=== PATIENT | female | born 1935 | race African-American/Black ===

== ENCOUNTER 2025-01-01 08:56 | Outpatient (REF) | payer MEDICARE, SELFPAY ==
--- NOTE | ~2025-01-01 | XR_ITS ---
EXAMINATION: XR CHEST CLINICAL INFORMATION: R06.02 - Shortness of breath COMPARISON: None available. TECHNIQUE: 2 views of the chest were obtained. FINDINGS: There is no pneumothorax. Lungs are clear and well aerated. There is no pleural effusion. Heart size is within normal limits. There is rotator cuff arthropathy on the right with aeration of the subacromial space and irregularity of the humeral head contour. XR/XR chest 2V IMPRESSION: No acute disease. Rotator cuff arthropathy is present in the right shoulder consistent with a chronic full-thickness rotator cuff tear. Electronically signed by: Vern Qureshi MD 01/01/2025 10:49 AM VARSHA
[2025-01-01 11:15] LABS: MANUAL DIFF FLAG NO
[2025-01-01 11:53] LABS: Hematocrit 34.4 % (37.0-47.0); Hemoglobin 11.3 g/dl (12.0-16.0); Imm Gran Abs Auto 0.01 X10*3/uL (0.00-0.03); Imm Gran Pct Auto 0.2 % (0.0-0.4); Lymphocytes Absolute Auto 1.5 X10*3/uL (1.2-4.9); Mean Corpuscular HGB Conc 32.8 g/dl (31.0-35.0); Mean Corpuscular Hemoglobin 29.3 pg (27.0-33.0); Mean Corpuscular Volume 89.1 fL (80.0-98.0); NRBC Abs Auto 0.000 X10*3/uL (0.0-0.012); NRBC Pct Auto 0.0 /100WBC (0.0-0.2); Platelet Count 367 X10*3/uL (160-400); Red Blood Count 3.86 X10*6/uL (4.20-5.50); White Blood Count 4.9 X10*3/uL (4.8-10.8)
[2025-01-01 12:42] LABS: NT Pro B Type Natriuretic Pept 421.2 pg/mL (<300); Troponin-I High Sensitivity < 2.7 ng/L (<3.5-17.0)
[2025-01-01 12:46] LABS: Microalbum/Creatinine Ratio Ur 40.6 ug/mg cr (<30)
[2025-01-01 12:58] LABS: Alanine Aminotransferase 13 U/L (0-31); Albumin Level 4.2 g/dL (3.5-5.0); Alkaline Phosphatase 56 U/L (39-117); Anion Gap 10 (12-20); Aspartate Amino Transferase 28 U/L (5-31); Blood Urea Nitrogen 12 mg/dL (9-16); Calcium 9.9 mg/dL (8.4-10.2); Carbon Dioxide 32 mmol/L (22-29); Chloride 103 mmol/L (96-108); Cholesterol 203 mg/dL (<200); Estimated Glomerular Filt Rate > 60; HDL Cholesterol 83 mg/dL (>40); Iron 63 mcg/dL (30-160); Percent Iron Saturation 32 % (15-50); Potassium 4.0 mmol/L (3.3-5.1); Sodium 141 mmol/L (135-145); Total Iron Binding Capacity 197 mcg/dL (228-428); Total Protein 7.5 g/dL (6.5-8.0); Triglycerides 38 mg/dL (<150); Unsaturated Iron Binding 134 ug/dL
[2025-01-01 13:13] LABS: Ferritin 194 ng/mL (10-250)
== END 2025-01-01 08:57 | disposition home or self-care (01) ==
LOC: HO.XRAY 08:56
PROVIDERS: PCP Internal Medicine; Visit Provider Internal Medicine
DX: R00.2 Palpitations (principal); R06.02 Shortness of breath; K21.9 Gastro-esophageal reflux disease without esophagitis; I10 Essential (primary) hypertension; K58.9 Irritable bowel syndrome, unspecified; D50.9 Iron deficiency anemia, unspecified; Z78.0 Asymptomatic menopausal state; R07.9 Chest pain, unspecified
CPT/HCPCS: 36415; 71046; 80053; 80061; 82043; 82570; 82728; 83540; 83880; 84443; 84484; 85025; 99212

== ENCOUNTER 2025-01-01 08:56 | Outpatient (AMB) | payer MEDICARE, SELFPAY ==
--- NOTE | 2025-01-01 09:00 | A.OFFPC_ITS ---
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 Required: No Accompanied by: Self / Same As Patient Allergies amoxicillin Allergy (Intermediate, Verified 01/01/25 09:04) Diarrhea Medication List - Last Reconciled 01/01/25 by Jocy Covarrubias MD amlodipine 10 mg PO DAILY atenolol 50 mg PO DAILY sennosides-docusate sodium 8.6-50 mg (Stool Softener-Stimulant Laxative) 1 tab PO BID PRN Tobacco use date assessed: 01/01/25 Fall risk assessment: No Falls in past year Last assessed Fall Risk: 01/01/25 Dental Screening Dental Screen Date: 01/01/25 Did you have a dental visit in the last 12 months?: No Did you have a dental problem in the last 6 months where you did not have access to dental care?: No HPI HPI Comments History of Present Illness Details The patient is an 89-year-old female presenting to [facility] and for follow-up after recent emergency room visits related to diverticulitis and other health concerns. Diverticulitis: Confirmed diverticulitis with CT imaging at [facility]. Adverse reaction to Amoxicillin with diarrhea did not call ER when she had reaction. Managed with Metronidazole that she had at home. Total duration of both antibiotics about 7 days per patient. Shortness of Breath on Exertion: Symptomatic for a few months, worsens with activity. Also notes occasional chest tightness and palpiations. Had EKG done at [facility] on 12/24. Visual Disturbances: Previously treated for pink eye, ongoing impaired vision. Will be seeing new commercial appraiser IBS- stable HTN-stable Anemia- due for repeat labs GERD-stable, does not use PPI Social History: - Functions independently - Engages in yard work and home maintena nce - Reports decreased activity due to symp toms Family History: - Sister with stomach cancer - Sister with unspecified cancer noted o n the face Diagnostic Results: - CT scan completed [facility] for diverticulitis Health Maintenance due for bone density- will be getting at [facility] Used to see CT GI Review of Systems - Gastrointestinal: per hpi, occasional rlq pain - Respiratory: Reports shortness of sonny th on exertion. - Cardiovascular: Reports palpitations w ith exertion. - Ophthalmologic: Reports unresolved vis ual disturbances after a pink eye diagnosis. Physical Exam - Gen: NAD - Respiratory- Clear breath sounds, regu lar rate. - Cardiovascular- Regular rhythm, soft m urmur across precordium - Abdominal- Soft, normal bowel sounds, mild tenderness right lower quadrant. - Extremities: no edema bilaterally Assessment and Plan 1. Diverticulitis - Review [facility] records. - Monitor and consider repeat CT if symp toms persist. 2. Shortness of Breath on Exertion - Refer for a stress test and echocardio gram due to persistent symptoms and risk factors including HTN, age - Chest x-ray and labs ordered. - Obtain [facility] ER notes 3. Visual Disturbances - Suggest follow-up with commercial appraiser . 4. HTN- continue current regimen 5. Palpitations- continue to monitor, ch inocente tsh Follow up in 6 weeks. Discussion Notes During the visit, I discussed the patient's acute episodes of diverticulitis. I explained our plan to obtain records from [facility] and potentially repeat CT imaging if symptoms persisted. For her reported shortness of breath and palpitations, I recommended a cardiology workup including an echocardiogram and stress test, detailing why these steps are crucial to ruling out cardiac involvement. We also discussed scheduling a chest x-ray and relevant labs to identify any lung or heart-related issues underlying her symptoms. I also addressed her complaints regarding unresolved visual issues post-pink eye, recommending her to see an commercial appraiser. Patient Instructions - Monitor abdominal symptoms; report any worsening. - Follow up with commercial appraiser for vis ion issues. - Undergo scheduled stress test and echo cardiogram. - Complete chest x-ray and lab work as o rdered. - Avoid strenuous activities until furth er evaluation. [facility] Medical History (Updated 01/01/25 @ 14:44 by Jocy Covarrubias MD) Diverticulitis Palpitations Shortness of breath on exertion Post-menopausal Irritable bowel syndrome Iron deficiency anemia GERD (gastroesophageal reflux disease) Primary hypertension Social History Housing: House Patient Tobacco Use Status: Never used Tobacco e-Cigarette/Vaping Use: Never Used service: No Current occupational status: retired Questionnaire AUDIT C Alcohol Use Questionnaire (AUDIT-C) 1. How often do you have a drink containing alcohol?: Monthly or less 2. How many drinks containing alcohol do you have on a typical day when you are drinking?: 1 or 2 3. How often do you have six or more drinks on one occasion?: Never Total Score: 1 Physical exam (Primary Care) Vital Signs: Last Vital Signs Temp 96.8 F 01/01/25 09:03 Pulse 58 01/01/25 09:03 Resp 16 01/01/25 09:03 BP 120/76 01/01/25 09:03 Pulse Ox 97 01/01/25 09:03 Oxygen Delivery Method Room Air 01/01/25 09:03 BMI result Body Mass Index 21.5 Tobacco/Smoking Status: Tobacco use Status Tobacco use date assessed 01/01/25 01/01/25 09:08 Patient Tobacco Use Status Never used Tobacco 01/01/25 09:08 e-Cigarette/Vaping Use Never Used 01/01/25 09:08 Coding Level of Care Code Est Pt Level 4 (17837) Complex EM visit Add On G2211 Diagnoses Shortness of breath on exertion R06.02 Primary hypertension I10 Diverticulitis K57.92 Iron deficiency anemia, unspecified iron deficiency anemia type D50.9 Iron deficiency anemia type: unspecified iron deficiency Irritable bowel syndrome, unspecified type K58.9 Irritable bowel syndrome type: unspecified Palpitations R00.2 Assessment & Plan Assessment & Plan (1) Shortness of breath on exertion: Code(s): R06.02 - Shortness of breath Category: Medical (2) Primary hypertension: Code(s): I10 - Essential (primary) hypertension Category: Medical (3) Diverticulitis: Code(s): K57.92 - Diverticulitis of intestine, part unspecified, without perforation or abscess without bleeding Category: Medical Plan: see above, continue to monitor, pt declines GI follow up (4) Iron deficiency anemia: Code(s): D50.9 - Iron deficiency anemia, unspecified Category: Medical Qualifiers: Iron deficiency anemia type: unspecified iron deficiency Qualified Code(s): D50.9 - Iron deficiency anemia, unspecified (5) Irritable bowel syndrome: Code(s): K58.9 - Irritable bowel syndrome, unspecified Category: Medical Qualifiers: Irritable bowel syndrome type: unspecified Qualified Code(s): K58.9 - Irritable bowel syndrome without diarrhea (6) Palpitations: Code(s): R00.2 - Palpitations Category: Medical Plan: continue to monitor , no recurrent episodes Plan - Review [facility] records. - Refer for stress test, echo; order labs and chest x-ray. - Suggest ophthalmology follow-up. - Follow up in 6 weeks or sooner if needed Orders: Orders Comprehensive Met. Panel Today D50.9 - Iron deficiency anemia, unspecified, I10 - Essential (primary) hypertension, K21.9 - Gastro-esophageal reflux disease without esophagitis, K58.9 - Irritable bowel syndrome, unspecified Complete Blood Count Auto Diff Today D50.9 - Iron deficiency anemia, unspecified, I10 - Essential (primary) hypertension, K21.9 - Gastro-esophageal reflux disease without esophagitis, K58.9 - Irritable bowel syndrome, unspecified Microalbumin, Random (w Creat) Today I10 - Essential (primary) hypertension XR DEXA axial skeleton Today Z78.0 - Asymptomatic menopausal state NM cardiolite stress test Today R06.02 - Shortness of breath TSH reflex Free T4 Today R00.2 - Palpitations, R06.02 - Shortness of breath Lipid Panel Today D50.9 - Iron deficiency anemia, unspecified, I10 - Essential (primary) hypertension, K21.9 - Gastro-esophageal reflux disease without esophagitis, K58.9 - Irritable bowel syndrome, unspecified IRON PROFILE Today D50.9 - Iron deficiency anemia, unspecified, I10 - Essential (primary) hypertension, K21.9 - Gastro-esophageal reflux disease without esophagitis, K58.9 - Irritable bowel syndrome, unspecified Ferritin Today D50.9 - Iron deficiency anemia, unspecified, I10 - Essential (primary) hypertension, K21.9 - Gastro-esophageal reflux disease without esophagitis, K58.9 - Irritable bowel syndrome, unspecified CA stress test Today R06.02 - Shortness of breath, R07.9 - Chest pain, unspecified NT Pro B Type Natriuretic Pept Today R06.02 - Shortness of breath Troponin-I High Sensitivity Today R06.02 - Shortness of breath XR chest 2V Today R06.02 - Shortness of breath CA echo transthoracic complete Today R06.02 - Shortness of breath Patient Instructions: GET CHEST XRAY TODAY GET LABS TODAY WE WILL DO REFERRAL FOR STRESS TEST AND ECHOCARDIOGRAM TO EVALUATE YOUR SHORTNESS OF BREATH GET BONE DENSITY AT [facility]
[2025-01-01 09:03] VITALS: BP 120/76; PULSE 58; RESP 16; TEMP 36; O2SAT 97; BMI 21.5
--- OUTSIDE RECORDS SUMMARY | 2025-01-01 09:38 | XMS_ITS | Patient Health Record ---
Author Organization [facility] Address [address] [place] [address] Care Team Providers Care T[employer] Finisher Name Role Phone Johnnie Puentes MD Primary Care Provider Terrie Armstrong Unavailable [phone] Reason For Referral No Information Medications Medication SIG (Take, Route, Frequency, Duration) Notes Start Date End Date Status Atenolol 50 MG 1 tablet Orally Once a day; Duration: 30 day(s) Active hydroCHLOROthiazide 25 MG 1 tablet Orall y Once a day; Duration: 30 day(s) Active Problems No Known Problems Plan Of Treatment Pending Test Test Name Order Date X ray : Foot, left 3V 08/01/2012 26390- Debride <25 sq cm 08/01/2012 46336- Debride <25 sq cm 11/07/2012 53208- Debride <25 sq cm 03/23/2013 Insurance Providers Payer Name Payer Address Payer Phone Subscriber Number Group Number Insured Name Patient Relationship to Insured Coverage Start Date Coverage End Date [employer] [address] [place] [address] [id number] Enma Roman Self - patient is the insured 3 Medical (General) History Medical History History ICD Code angina Arthritis diverticulosis hypertension reflux Surgical History Surgery Date(Month/Year) hysterectomy 1996
--- OUTSIDE RECORDS SUMMARY | 2025-01-01 09:38 | XMS_ITS | Clinical Summary ---
Author Organization [facility] Address [address] [place] [address] Phone Care Team Providers Care Property Supervisor Name Role Phone Jocy Covarrubias MD Primary Care Provider [phone] Allergies No known active allergies Medications amoxicillin-cl avulanate (AUGMENTIN) 400-57 mg/5 mL suspension Take 10 mL by mouth every 12 (twelve) hours for 14 days. 280 mL 5 025 Active erythromycin 5 mg/gram (0.5 %) ophthalmic ointment Place a 1/2 inch ribbon of ointment into the lower eyelid. 3.5 g 5 025 amoxicillin-cl avulanate (AUGMENTIN) 400-57 mg/5 mL suspension Take 10 mL by mouth every 12 (twelve) hours for 14 days. 280 mL 5 025 Discontinued Encounters Date Type Department Care Team Description 12/24/2024 6:39 PM EDT - 12/24/2024 11:32 PM EDT Emergency [facility] Emergency [address] [place] [address] Quentin Dooley MD Landry, Jonathan P, MD Diverticulitis large intestine w/o perforation or abscess w/o bleeding (Primary Dx) Discharge Disposition: Home or Self Care 12/18/2024 6:55 PM EDT - 12/18/2024 9:48 PM EDT Emergency [facility] Emergency [address] [place] [address] Ruchi Vazquez MD Binocular vision disorder with diplopia (Primary Dx); Left-sided fourth cranial nerve palsy Discharge Disposition: Home or Self Care from Last 3 Months Surgical History Surgery Date Site/Laterality Comments HYSTERECTOMY Social History Tobacco Use Types Packs/Day Years Used Date Smoking Tobacco: Never Smokeless Tobacco: Current Tobacco Cessation:Ready to Q uit: Not Asked; Counseling Given: Not Answered Alcohol Use Standard Drinks/Week Comments Never 0 (1 standard drink = 0.6 oz pur e alcohol) Comments Unknown Sex and Gender Information Value Date Recorded Sex Assigned at Not on file Legal Sex Female 9:58 PM EST Gender Identity Not on file Sexual Orientation Not on file Obstetrics History Last Filed Vital Signs Vital Sign Reading Time Taken Comments Blood Pressure 169/61 12/24/2024 10:32 PM EDT Pulse 102 12/24/2024 10:32 PM EDT Temperature 38.3 C (100.9 F) 12/24/2024 10:32 PM EDT Respiratory Rate 22 12/24/2024 10:32 PM EDT Oxygen Saturation 97% 12/24/2024 10:32 PM EDT Inhaled Oxygen Concentration - - Weight 51.3 kg (113 lb) 12/24/2024 5:57 PM EDT Height 152.4 cm (5') 12/24/2024 5:57 PM EDT Body Mass Index 22.07 12/24/2024 5:57 PM EDT Plan of Treatment Health Maintenance Due Date Last Done Comments Hepatitis A Vaccines (1 of 2 - Risk 2-dose series) 1956 Zoster Vaccines (1 of 2) 1987 Hepatitis B Vaccines (1 of 3 - Risk 3-dose series) 1997 RSV Immunization Adult Patients (1 - 1-dose 75+ series) 2012 Cholesterol Screening (Lipid Panel) 04/04/2023 Falls Risk Assessment 04/04/2023 Medicare Annual Wellness Visit 04/04/2023 Osteoporosis Screening (Bone Density Screening) 04/04/2023 Social Influencers of Health Screening 04/04/2023 Depression Screening 03/01/2024 COVID-19 Vaccine ( season) 2024 12/29/2021, 06/14/2021, 01/28/2021, Additional history exists Influenza Vaccine (#1) 2024 Hypertension/CHF/CAD Annual BMP Blood Test 12/24/2025 12/24/2024, 12/18/2024, 01/02/2022 DTaP,Tdap,and Td Vaccines (2 - Td or Tdap) 02/20/2026 02/21/2016 Pneumococcal Vaccine: 50+ Years Completed 11/22/2017, 02/15/2017, 11/27/2003 HIB Vaccines Aged Out No longer eligi ble based on patient's age to complete this topic HPV Vaccines Aged Out No longer eligi ble based on patient's age to complete this topic IPV Vaccines Aged Out No longer eligi ble based on patient's age to complete this topic MMR Vaccines Aged Out No longer eligi ble based on patient's age to complete this topic Meningococcal ACWY Vaccine Aged Out N o longer eligible based on patient's age to complete this topic Meningococcal B Vaccine Aged Out No l onger eligible based on patient's age to complete this topic RSV Immunization Patients Under 20 months Aged Out No longer eligible based on patient's age to complete this topic Varicella Vaccines Aged Out No longer eligible based on patient's age to complete this topic Procedures Procedure Name Priority Date/Time Associated Diagnosis Comments ECG ANNOTATED 12/25/2024 CULTURE BLOOD STAT 12/24/2024 10:50 PM EDT CULTURE BLOOD STAT 12/24/2024 10:[address] ABDOMEN PELVIS W CONTRAST STAT 12/24/2024 9:00 PM EDT MAGNESIUM STAT 12/24/2024 7:33 PM EDT LACTATE STAT 12/24/2024 7:33 PM EDT CBC WITH AUTO DIFFERENTIAL STAT 12/24/2024 7:33 PM EDT LIPASE STAT 12/24/2024 7:33 PM EDT COMPREHENSIVE METABOLIC PANEL STAT 12/24/2024 7:33 PM EDT CBC AND DIFFERENTIAL STAT 12/24/2024 7:33 PM EDT ECG 12-LEAD STAT 12/24/2024 7:16 PM EDT REECE URINE CULTURE TUBE STAT 12/24/2024 6:07 PM EDT URINALYSIS WITH REFLEX MICROSCOPIC AND CULTURE STAT 12/24/2024 6:07 PM EDT URINALYSIS WITH REFLEX MICROSCOPIC AND CULTURE STAT 12/24/2024 6:[address] FOSSA/SELLA/IAC/ORBIT W CONTRAST STAT 12/18/2024 8:[address] HEAD WO CONTRAST STAT 12/18/2024 8 :43 PM EDT CBC WITH AUTO DIFFERENTIAL STAT 12/18/2024 7:04 PM EDT BASIC METABOLIC PANEL STAT 12/18/2024 7:04 PM EDT CBC AND DIFFERENTIAL STAT 12/18/2024 7:04 PM EDT from Last 3 Months Results * ECG-Annotated (12/25/2024) us Provider Onbase ECG ORDERABLES Final Result * Blood Culture, Peripheral #2 (12/24/2024 10:50 PM EDT) Only the most recent of2 resultswithin the time period is included. Culture, Blood No growth at 5 days LAB MICROBIOLOGY METHOD 12/30/2024 5:01 AM EDT [facility] Blood Venous blood specimen / Unknown Venipuncture / Unknown 12/24/2024 10:50 PM EDT 12/24/2024 11:16 PM EDT us Agustín Carlos MD LAB MICROBIOLOGY - GENERAL ORDERABLES Final Result [facility] [address] [place] [address], * CT Abdomen Pelvis w Contrast (12/24/2024 9:00 PM EDT) Anatomical Region Laterality Modality Body Computed Tomogra phy 12/24/2024 10:1 4 PM EDT Impressions 12/24/2024 10:14 PM EDT 1. Acute diverticulitis present at the hepatic flexure of the colon with extensive pericolonic edema in this region. No pericolonic abscess. No bowel obstruction. 2. Minimal free fluid present within the pelvis, possibly reactive in etiology. 3. Borderline bladder wall thickening. This is nonspecific, possibly related to bladder underdistention. If there is clinical concern for subtle cystitis, may consider correlation with urinalysis results for further evaluation. This document has been electronically signed by: Johnnie Butler MD on 12/24/2024 22:14:37 Narrative 12/24/2024 10:14 PM EDT INDICATION: abdominal pain CT abdomen and pelvis with contrast Comparison: None provided. Findings: No consolidation or effusion. The gallbladder and solid organs are within normal limits. No hydronephrosis or hydroureter. No bowel obstruction, pneumoperitoneum, or pneumatosis. There is colonic diverticulosis with bowel wall thickening and extensive pericolonic edema at the hepatic flexure of the colon, consistent with acute diverticulitis. No pericolonic abscess. The uterus is surgically absent. The bladder is underdistended, mildly limiting evaluation. There is borderline bladder wall thickening. Minimal free fluid identified within the pelvis. Nonvisualization of the appendix. No acute fracture visualized. There is grade 1 anterolisthesis of L4 on L5. Vacuum disc phenomenon present at L4-L5 and L5-S1. Procedure Note Johnnie Butler MD - 12/24/2024 INDICATION: abdominal pain CT abdomen and pelvis with contrast Comparison: None provided. Findings: No consolidation or effusion. The gallbladder and solid organs are within normal limits. No hydronephrosis or hydroureter. No bowel obstruction, pneumoperitoneum, or pneumatosis. There is colonic diverticulosis with bowel wall thickening and extensive pericolonicedema at the hepatic flexure of the colon, consistent with acutediverticulitis. No pericolonic abscess. The uterus is surgically absent. The bladder is underdistended, mildly limiting evaluation. There is borderline bladder wall thickening.Minimal free fluid identified within the pelvis. Nonvisualization of theappendix. No acute fracture visualized. There is grade 1 anterolisthesis of L4 on L5. Vacuum disc phenomenon present at L4-L5 and L5-S1. IMPRESSION: 1. Acute diverticulitis present at the hepatic flexure of the colon with extensive pericolonic edema in this region. No pericolonic abscess. No bowel obstruction. 2. Minimal free fluid present within the pelvis, possibly reactive in etiology. 3. Borderline bladder wall thickening. This is nonspecific, possibly related to bladder underdistention. If there is clinical concern for subtle cystitis, may consider correlation with urinalysis results for further evaluation. This document has been electronically signed by: Johnnie Butler MD on 12/24/2024 22:14:37 Quentin Dooley MD IM CT PROCEDURES Final Result * (ABNORMAL) CBC auto differential (12/24/2024 7:33 PM EDT) Only the most recent of2 resultswithin the time period is included. WBC 10.6 4.8 - 10.8 K/mcL LAB HEMETOLOGY METHOD 12/24/2024 7:57 PM [facility] RBC 3.80 3.80 - 4.80 M/mcL LAB HEMETOLOGY METHOD 12/24/2024 7:57 PM [facility] Hemoglobin 11.2(L) 11.5 - 16.0 g/dL LAB HEMETOLOGY METHOD 12/24/2024 7:57 PM [facility] Hematocrit 33.5(L) 35.0 - 47.0 % LAB HEMETOLOGY METHOD 12/24/2024 7:57 PM [facility] MCV 87.7 79.0 - 98.0 FL LAB HEMETOLOGY METHOD 12/24/2024 7:57 PM [facility] MCH 29.3 27.0 - 32.0 pcg LAB HEMETOLOGY METHOD 12/24/2024 7:57 PM EDT [facility] MCHC 33.4 32.0 - 37.0 g/dL LAB HEMETOLOGY METHOD 12/24/2024 7:57 PM EDT [facility] RDW 14.9 11.0 - 15.0 % LAB HEMETOLOGY METHOD 12/24/2024 7:57 PM EDT [facility] Platelets 315 130 - 400 K/mcL LAB HEMETOLOGY METHOD 12/24/2024 7:57 PM EDT [facility] MPV 10.8 7.0 - 11.0 FL LAB [facility]EMETOLOGY [facility] NRBC 0.0 <1.0 % LAB HEMETOLOGY METHOD 12/24/2024 7:57 PM EDT [facility] NRBC Absolute 0.00 <0.10 K/mcL LAB [facility]OLOGY [facility]/24[facility]24 [facility] Neutrophils Relative 76.7 % LAB HEMETOLOGY METHOD 12/24/2024 7:57 PM [facility] Lymphocytes Relative 11.5 % LAB HEMETOLOGY METHOD 12/24/2024 7:57 PM [facility] Monocytes Relative 10.9 % LAB HEMETOLOGY METHOD 12/24/2024 7:57 PM T [facility] Eosinophils Relative 0.3 % LAB HEMETOLOGY METHOD 12/24/2024 7:57 PM EDT [facility] Basophils Relative 0.2 % LAB HEMETOLOGY METHOD 12/24/2024 7:57 PM [facility] Immature Granulocytes Relative 0.4 % LAB HEMETOLOGY METHOD 12/24/2024 7:57 PM EDT [facility] Neutrophils Absolute 8.14(H) 1.50 - 7.00 K/mcL LAB HEMETOLOGY METHOD 12/24/2024 7:57 PM EDT [facility] Lymphocytes Absolute 1.22 1.00 - 5.00 K/mcL LAB HEMETOLOGY METHOD 12/24/2024 7:57 PM EDT [facility] Monocytes Absolute 1.16(H) 0.20 - 1.00 K/mcL LAB HEMETOLOGY METHOD 12/24/2024 7:57 PM EDT [facility] Eosinophils Absolute 0.03 0.00 - 0.50 K/[facility] LAB HEMETOLOGY METHOD 12/24/2024 7:57 PM EDT [facility] Basophils Absolute 0.02 0.00 - 0.20 K/[facility] LAB HEMETOLOGY METHOD 12/24/2024 7:57 PM EDT [facility] Immature Granulocytes Absolute 0.04(H) 0.00 - 0.03 K/[facility] LAB HEMETOLOGY METHOD 12/24/2024 7:57 PM EDT [facility] Blood Venous blood specimen / Unknown Venipuncture / Unknown 12/24/2024 7:33 PM EDT 12/24/2024 7:50 PM EDT us Agustín Carlos MD LAB BLOOD ORDERABLES Final Result [facility] [address] [place] [address], * (ABNORMAL) Magnesium (12/24/2024 7:33 PM EDT) Magnesium 1.8(L) 1.9 - 2.6 mg/dL LAB CHEMISTRY METHOD 12/24/2024 8:26 PM EDT [facility] Comment:Hemolysis present Blood Venous blood specimen / Unknown Venipuncture / Unknown 12/24/2024 7:33 PM EDT 12/24/2024 7:50 PM EDT Quentin Dooley MD LAB BLOOD ORDERABLES Final Resul t Performing Organization Address [facility]/ZIP Co de Phone Number [facility] [address] [place] [address], [place] [phone] * Lipase (12/24/2024 7:33 PM EDT) Pathologist [facility] Lipase 20 13 - 75 unit/L LAB CHEMISTRY METHOD 12/24/2024 8:26 PM EDT [facility] Blood Venous blood specimen / Unknown Venipuncture / Unknown 12/24/2024 7:33 PM EDT 12/24/2024 7:50 PM EDT Agustín Carlos MD LAB BLOOD ORDERABLES Final Result Performing Organization Address [facility] Co de Phone Number [facility] [address] [place] [address], [place] [phone] * Lactate (12/24/2024 7:33 PM EDT) [facility] Lactate 1.1 0.4 - 2.0 mmol/L LAB CHEMISTRY METHOD 12/24/2024 8:18 PM EDT [facility] Blood Venous blood specimen / Unknown Venipuncture / Unknown 12/24/2024 7:33 PM EDT 12/24/2024 7:50 PM EDT us Quentin Dooley MD LAB BLOOD ORDERABLES Final Resul t Performing Organization Address [facility]/ZIP Co de Phone Number [facility] [address] [place] [address], [place] [phone] * (ABNORMAL) Comprehensive metabolic panel (12/24/2024 7:33 PM EDT) Pathologist [facility] Sodium 135 133 - 145 mmol/L LAB CHEMISTRY METHOD 12/24/2024 8:26 PM EDT [facility] Potassium 4.7 3.5 - 5.5 mmol/L LAB CHEMISTRY METHOD 12/24/2024 8:26 PM [facility] Comment:Hemolysis present Chloride 100 96 - 110 mmol/L LAB CHEMISTRY METHOD 12/24/2024 8:26 PM [facility] CO2 30 21 - 32 mmol/L LAB CHEMISTRY METHOD 12/24/2024 8:26 PM [facility] Anion Gap 5 3 - 11 LAB CHEMISTRY METHOD 12/24/2024 8:26 PM [facility] Glucose 93 70 - 100 mg/dL LAB CHEMISTRY METHOD 12/24/2024 8:26 PM [facility] BUN 11 5 - 25 mg/dL LAB CHEMISTRY METHOD 12/24/2024 8:26 PM [facility] Creatinine 0.96 0.50 - 1.10 mg/dL LAB CHEMISTRY METHOD 12/24/2024 8:26 PM [facility] eGFR 57(L) >=60 mL/min/1. 73m2 LAB CHEMISTRY METHOD 12/24/2024 8:26 PM [facility] Comment:Calculation based on the Chronic Kidney Disease Epidemiology Collaboration (CKD-EPI) equation refit without adjustment for race. BUN/Creatinine Ratio 11.5 LAB CHEMISTRY METHOD 12/24/2024 8:26 PM [facility] Calcium 9.1 8.5 - 10.5 mg/dL LAB CHEMISTRY METHOD 12/24/2024 8:26 PM [facility] AST (SGOT) 44(H) 10 - 42 unit/L LAB CHEMISTRY METHOD 12/24/2024 8:26 PM [facility] Comment:Hemolysis present ALT (SGPT) 19 10 - 60 unit/L LAB CHEMISTRY METHOD 12/24/2024 8:26 PM [facility] Alkaline Phosphatase 55 42 - 121 unit/L LAB CHEMISTRY METHOD 12/24/2024 8:26 PM EDT [facility] Total Protein 7.0 6.0 - 8.0 g/dL LAB CHEMISTRY METHOD 12/24/2024 8:26 PM EDT [facility] Albumin 3.1(L) 3.2 - 5.0 g/dL LAB CHEMISTRY METHOD 12/24/2024 8:26 PM EDT [facility] Total Bilirubin 0.8 0.0 - 1.4 mg/dL LAB CHEMISTRY METHOD 12/24/2024 8:26 PM EDT [facility] Blood Venous blood specimen / Unknown Venipuncture / Unknown 12/24/2024 7:33 PM EDT 12/24/2024 7:50 PM EDT Agustín Carlos MD LAB BLOOD ORDERABLES Final Result [facility] [address] [place] [address], [place] [phone] * 12-Lead ECG (12/24/2024 7:16 PM EDT) Ventricular Rate ECG 81 BPM GEMUSE Atrial Rate 81 BPM GEMUSE P-R Interval 144 ms GEMUSE QRS Duration 60 ms GEMUSE Q-T Interval 334 ms GEMUSE QTc 387 ms GEMUSE P Wave [place] 54 degrees GEMUSE R [place] 10 degrees GEMUSE T [place] 28 degrees GEMUSE ECG Interpretation Normal sinus rhythm Normal ECG When compared with ECG of 03-SEP-2014 20:42, No significant change was found Confirmed by Sotero KAPOOR YUFENG ([id number]) on 12/24/2024 9:35:54 PM GEMUSE 12/24/2024 7:16 PM EDT 12/24/2024 9:35 PM EDT us Qunetin Dooley MD ECG ORDERABLES Final Result GEMUSE * (ABNORMAL) Urinalysis with reflex microscopic and culture (12/24/2024 6:07 PM EDT) Specific [place] Urine 1.014 1.003 - 1.030 LAB URINALYSIS - AUTOMATED METHOD 12/24/2024 6:39 PM [facility] pH, Urine 7.5 5.0 - 8.0 pH LAB URINALYSIS - AUTOMATED METHOD 12/24/2024 6:39 PM [facility] Leukocytes, Urine Negative Negative LAB URINALYSIS - AUTOMATED METHOD 12/24/2024 6:39 PM [facility] Nitrite, Urine Negative Negative LAB URINALYSIS - AUTOMATED METHOD 12/24/2024 6:39 PM [facility] Protein, Urine Negative <=Trace mg/dL LAB URINALYSIS - AUTOMATED METHOD 12/24/2024 6:39 PM [facility] Glucose, Urine Negative Negative mg/dL LAB URINALYSIS - AUTOMATED METHOD 12/24/2024 6:39 PM [facility] Ketones, Urine Negative Negative mg/dL LAB URINALYSIS - AUTOMATED METHOD 12/24/2024 6:39 PM [facility] Urobilinogen , Urine 0.2 0.2 - 1.0 mg/dL LAB URINALYSIS - AUTOMATED METHOD 12/24/2024 6:39 PM [facility] Bilirubin, Urine Negative Negative LAB URINALYSIS - AUTOMATED METHOD 12/24/2024 6:39 PM [facility] Blood, Urine Moderate(A) Negative LAB URINALYSIS - AUTOMATED METHOD 12/24/2024 6:39 PM [facility] RBC, Urine 34.2(H) 0 - 4 /HPF LAB URINALYSIS - AUTOMATED METHOD 12/24/2024 6:39 PM [facility] WBC, Urine 1.7 0 - 4 /HPF LAB URINALYSIS - AUTOMATED METHOD 12/24/2024 6:39 PM [facility] Squamous Epithelial, Urine 58 0 - 60 /LPF LAB URINALYSIS - AUTOMATED METHOD 12/24/2024 6:39 PM EDT [facility] Bacteria, Urine Negative Negative /HPF LAB URINALYSIS - AUTOMATED METHOD 12/24/2024 6:39 PM EDT [facility] Hyaline Casts, Urine 0.0 0 - 3 /LPF LAB URINALYSIS - AUTOMATED METHOD 12/24/2024 6:39 PM EDT [facility] Urine Urine specimen obtained by clean catch procedure / Unknown Non-blood Collection / Unknown 12/24/2024 6:07 PM EDT 12/24/2024 6:12 PM EDT Agustín Carlos MD LAB URINE ORDERABLES Final Result Performing Organization Address City/[facility]/ZIP Co de Phone Number [facility] [address] [place] [address], [place] [phone] * Reece urine culture tube (12/24/2024 6:07 PM EDT) Extra Tube Hold for add-ons. 12/24/2024 8:01 PM EDT [facility] Comment:Auto resulted. Urine Urine specimen obtained by clean catch procedure / Unknown Non-blood Collection / Unknown 12/24/2024 6:07 PM EDT 12/24/2024 6:12 PM EDT Agustín Carlos MD LAB URINE ORDERABLES Final Result [facility] [address] [place] [address], [place] [phone] * CT Fossa/Sella/IAC/Orbit w Contrast (12/18/2024 8:43 PM EDT) Anatomical Region Laterality Modality Head and Neck Computed Tomogra phy 12/18/2024 9:34 PM EDT Impressions 12/18/2024 9:34 PM EDT Right maxillary sinus disease. No periorbital abscess or abnormality of the globe bilaterally by CT. This document has been electronically signed by: Fco Granado MD on 12/18/2024 21:34:00 Narrative 12/18/2024 9:34 PM EDT INDICATION: r/o orbital cellulitis CT orbits with contrast Comparison: None provided Findings: No acute fractures. No dislocations. Orbital contents are normal. Visualized intracranial contents are within normal limits. There is circumferential thickening of the right maxillary sinus and mucoperiosteal thickening of the ethmoid air cells. No foreign bodies. Procedure Note Fco Granado MD - 12/18/2024 INDICATION: r/o orbital cellulitis CT orbits with contrast Comparison: None provided Findings: No acute fractures. No dislocations. Orbital contents are normal. Visualized intracranial contents are within normal limits. There is circumferential thickening of the right maxillary sinus and mucoperiosteal thickening of the ethmoid air cells. No foreign bodies. IMPRESSION: Right maxillary sinus disease. No periorbital abscess or abnormality of the globe bilaterally by CT. This document has been electronically signed by: Fco Granado MD on 12/18/2024 21:34:00 Ruchi Vazquez MD IMG CT PROCEDURES Final Result * CT Head wo Contrast (12/18/2024 8:43 PM EDT) Anatomical Region Laterality Modality Head and Neck Computed Tomogra phy 12/18/2024 9:33 PM EDT Impressions 12/18/2024 9:33 PM EDT Impression: No acute intracranial process. Chronic changes as detailed. This document has been electronically signed by: Fco Granado MD on 12/18/2024 21:33:06 Narrative 12/18/2024 9:33 PM EDT INDICATION: binocular diplopia CT head without contrast Comparison: None Findings: No evidence of acute territorial infarct. There is patchy low density in the periventricular and subcortical white matter. Diffuse volume loss is noted. No hydrocephalus. No hemorrhage, mass effect, mass lesion or midline shift. No abnormal extra-axial fluid. No calvarial fracture. Paranasal sinuses exhibit mucoperiosteal thickening. Procedure Note Fco Granado MD - 12/18/2024 INDICATION: binocular diplopia CT head without contrast Comparison: None Findings: No evidence of acute territorial infarct. There is patchy low density in the periventricular and subcortical white matter. Diffuse volume loss is noted. No hydrocephalus. No hemorrhage, mass effect, mass lesion or midline shift. No abnormal extra-axial fluid. No calvarial fracture. Paranasal sinuses exhibit mucoperiosteal thickening. IMPRESSION: Impression: No acute intracranial process. Chronic changes as detailed. This document has been electronically signed by: Fco Granado MD on 12/18/2024 21:33:06 Ruchi Vazquez MD IM CT PROCEDURES Final Result * (ABNORMAL) Basic Metabolic Panel (BMP) (12/18/2024 7:04 PM EDT) Sodium 137 133 - 145 mmol/L LAB CHEMISTRY METHOD 12/18/2024 7:51 PM [facility] Potassium 4.4 3.5 - 5.5 mmol/L LAB CHEMISTRY METHOD 12/18/2024 7:51 PM [facility] Chloride 102 96 - 110 mmol/L LAB CHEMISTRY METHOD 12/18/2024 7:51 PM [facility] CO2 30 21 - 32 mmol/L LAB CHEMISTRY METHOD 12/18/2024 7:51 PM [facility] Anion Gap 5 3 - 11 LAB CHEMISTRY METHOD 12/18/2024 7:51 PM [facility] Glucose 101(H) 70 - 100 mg/dL LAB CHEMISTRY METHOD 12/18/2024 7:51 PM [facility] BUN 13 5 - 25 mg/dL LAB CHEMISTRY METHOD 12/18/2024 7:51 PM [facility] Creatinine 0.89 0.50 - 1.10 mg/dL LAB CHEMISTRY METHOD 12/18/2024 7:51 PM EDT [facility] eGFR 63 >=60 mL/min/1. 73m2 LAB CHEMISTRY METHOD 12/18/2024 7:51 PM EDT [facility] Comment:Calculation based on the Chronic Kidney Disease Epidemiology Collaboration (CKD-EPI) equation refit without adjustment for race. BUN/Creatinine Ratio 14.6 LAB CHEMISTRY METHOD 12/18/2024 7:51 PM EDT [facility] Calcium 9.9 8.5 - 10.5 mg/dL LAB CHEMISTRY METHOD 12/18/2024 7:51 PM EDT [facility] Blood Venous blood specimen / Unknown Venipuncture / Unknown 12/18/2024 7:04 PM EDT 12/18/2024 7:12 PM EDT us Ruchi Vazquez MD LAB BLOOD ORDERABLES Final Resul t [facility] [address] [place] [address], from Last 3 Months Insurance MEDICARE Care Teams Property Supervisor Relationship Specialty Start Date End Date Jocy [place]arrubias MD [id number] [place] [address] PCP - General Internal Medicine 12/18/24
--- OUTSIDE RECORDS SUMMARY | 2025-01-01 09:38 | XMS_ITS | Clinical Summary ---
Author Organization [facility] Address [address] [place] [address] Care Team Providers Care Rip/Mould Operator Name Role Phone Unavailable Primary Care Provider Unavailabl e Social History Tobacco Use Types Packs/Day Years Used Date Smoking Tobacco: Never Assessed Sex and Gender Information Value Date Recorded Sex Assigned at Not on file Gender Identity Not on file Sexual Orientation Not on file Job Start Date Occupation Industry Not on file Not on file Not on file Plan of Treatment Health Maintenance Due Date Last Done Comments COVID-19 Vaccine (#1) 1935 Depression Screening 1949 Preventative Health Evaluation 1955 Shingrix-Zoster Vaccine (1 o f 2) 1987 Fall Risk Assessment 2002 Osteoporosis Screening (DEXA Scan) 2002 RSV Adult > 60+ Yrs or (1 - 1-dose 75+ series) 2012 DTap / Tdap / Td (1 - Tdap) 02/22/2016 02/21/2016 Influenza Vaccine (#1) 2024 Pneumococcal Vaccine Completed 11/22/2017, 02/15/2017, 11/27/2003 Hepatitis B Vaccines Aged Out No long er eligible based on patient's age to complete this topic RSV Ped < 20 months Aged Out No longe r eligible based on patient's age to complete this topic
--- OUTSIDE RECORDS SUMMARY | 2025-01-01 09:38 | XMS_ITS | Clinical Summary ---
Author Organization [facility] Address [address] [place] [address] Care Team Providers Care Valet Runner Name Role Phone Jocy Covarrubias MD Primary Care Provider +1- [phone] Allergies No known active allergies Medications Cholecalciferol (VITAMIN D3 PO) Take 25 mcg by mouth. 01/10/2021 Active amLODIPine (NORVASC) 5 MG tablet Take 5 mg by mouth. 08/12/2021 Active atenolol (TENORMIN) 50 MG tablet Take 50 mg by mouth daily. 12/25/2021 Active hydrochlorothiaz mahnaz (HYDRODIURIL) 25 MG tablet Take 25 mg by mouth daily. Active PANTOprazole (PROTONIX) 40 MG EC tabletIndication s:Epigastric pain Take 1 tablet (40 mg total) by mouth daily. 90 tablet 3 12/18/2022 Active hyoscyamine (LEVSIN) 0.125 MG tabletIndication s:Abdominal pain, generalized Take 1 tablet (0.125 mg total) by mouth every 4 (four) hours as needed for cramping. 30 tablet 3 05/24/2023 Active Active Problems Problem Noted Date Diagnosed Date Constipation 12/20/2022 Diverticulosis 12/18/2022 Epigastric pain 12/18/2022 Abdominal pain, generalized 12/18/2022 Hypertension 01/02/2022 Periumbilical pain 01/02/2022 Assessment & Plan (01/02/2022 11:32 AM EDT): Despite feeling pain remit, still with tenderness on exam Check labs and CT Scan Diverticulitis 01/02/2022 Assessment & Plan (01/02/2022 11:31 AM EDT): Hx diverticulitis in the past CT scan as above Continue prune juice for constipation for now Plan pending work up Family History Relation Name Status Comments Father Mother Social History Tobacco Use Types Packs/Day Years Used Date Smoking Tobacco: Never Smokeless Tobacco: Never Alcohol Use Standard Drinks/Week Comments Not Currently 3 (1 standard drink = 0.6 oz pur e alcohol) sometimes Comments Unknown Sex and Gender Information Value Date Recorded Sex Assigned at Not on file Legal Sex Female 11:56 AM EDT Gender Identity Not on file Sexual Orientation Not on file Last Filed Vital Signs Vital Sign Reading Time Taken Comments Blood Pressure 110/68 05/24/2023 9:35 AM EDT Pulse 60 05/24/2023 9:35 AM EDT Temperature - - Respiratory Rate - - Oxygen Saturation - - Inhaled Oxygen Concentration - - Weight 52.2 kg (115 lb) 05/24/2023 9:35 AM EDT Height 152.4 cm (5') 05/24/2023 9:35 AM EDT Body Mass Index 22.46 05/24/2023 9:35 AM EDT Plan of Treatment Health Maintenance Due Date Last Done Comments Advance Care Planning 1935 DTaP/Tdap/Td Vaccines (1 - Tdap) 1956 Pneumococcal Vaccines 50+ (1 of 1 - PCV) 1987 Zoster (Shingles) Vaccine (1 of 2) 1987 DXA Bone Density (Females,Ages 65 and older) 2002 RSV Vaccine 50 years and older and Patients (1 - 1-dose 75+ series) 2012 Influenza Vaccine 09/29/2024 COVID-19 Vaccine (2024- season) 2024 06/14/2021, 01/28/2021, 07/11/2020, Additional history exists Hepatitis B Vaccines Aged Out No long er eligible based on patient's age to complete this topic Insurance MEDICARE PART A & B Care Teams Valet Runner Relationship Specialty Start Date End Date Jocy Covarrubias MD [address] [place] [address] PCP - General Internal Medicine 12/23/18
== END 2025-01-01 10:11 | disposition home or self-care (01) ==
LOC: HO.HMCHD 08:56
PROVIDERS: PCP Internal Medicine; Visit Provider Internal Medicine
DX: R06.02 Shortness of breath (principal); I10 Essential (primary) hypertension; K57.92 Diverticulitis of intestine, part unspecified, without perforation or abscess without bleeding; D50.9 Iron deficiency anemia, unspecified; K58.9 Irritable bowel syndrome, unspecified; R00.2 Palpitations

== ENCOUNTER → 2025-01-01 10:26 | Outpatient (BNV) | payer MEDICARE, SELFPAY | PROVIDERS: PCP Internal Medicine; Visit Provider Radiology Diagnostic Radiology | DX: R06.02 Shortness of breath (principal); M12.811 Other specific arthropathies, not elsewhere classified, right shoulder | CPT/HCPCS: 71046 ==

== ENCOUNTER → 2025-01-05 13:38 | Outpatient (REF) | payer MEDICARE, SELFPAY ==
--- NOTE | 2025-01-05 13:41 | CA_ITS ---
Transthoracic Echocardiogram Patient (Last, First, Middle): Enma Roman, Gender: F Date of : 1935 Age: 89 Procedure Date: 01/05/2025 Procedure Type: Transthoracic Echocardiogram Location: OP Height: 152.4 cm Weight: 50.8 kg BSA: 1.46 m2 Heart Rate: 54 bpm BP: 120 / 76 mmHg Geophysical Support Specialist: CORNELIA Referring MD: Jocy Covarrubias MD Machine Feeder Floorperson: Alf Harmon MD Symptoms: R06.02 - Shortness of breath Study Quality: Adequate ECG Rhythm: Bradycardia Conclusions: - 1. Hyperdynamic LV EF of greater than 70% with grade 1 diastolic dysfunction 2. Normal cardiac valvular Dopplers 3. Normal RV systolic pressure 4. No gross pericardial effusion Findings Left Ventricle Normal left ventricular cavity size. There is normal left ventricular wall thickness. The left ventricular systolic function is hyperdynamic. The visually estimated ejection fraction is >70%. Spectral Doppler is indicative of an impaired relaxation filling pattern. E/E prime ratio is <8, consistent with normal filling pressures. Evidence suggests grade I (mild) diastolic dysfunction. Right Ventricle Normal right ventricular cavity size and systolic function. Atria Both atria are normal in size. There is no evidence of interatrial shunt. Aortic Valve Normal aortic valve structure and function. There is no aortic valve stenosis. There is no aortic valve regurgitation. Mitral Valve Normal mitral valve structure and function. There is trace mitral valve regurgitation. There is no mitral valve stenosis. Pulmonic Valve The pulmonic valve is likely normal. There is trace pulmonic valve regurgitation. Tricuspid Valve Normal tricuspid valve structure. There is trace tricuspid valve regurgitation. The right ventricular systolic pressure is normal. The right ventricular systolic pressure is 29 mmHg. Normal right atrial pressure. There is no evidence of pulmonary hypertension. Great Vessels All visible segments of the aorta are normal in size. The pulmonary artery was not well visualized. There is no dilatation of the ascending aorta measuring 2.50 cm. Venous The inferior vena cava is normal in size and collapses greater than 50% with inspiration. Pericardium/Pleural There is no evidence of pericardial effusion. Prior Study Comparison No prior study available for comparison. Measurements 2D Linear Measurements IVSd: 0.84 0.6-0.9/0.6-1.0 cm LVIDd: 3.96 3.9-5.3/4.2-5.9 cm LVIDd Index: 2.71 2.4-3.2/2.2-3.1 cm/m2 LVIDs: 2.23 2.0-3.6 cm LVPWd: 0.83 0.7-1.1 cm LA Diam: 3.00 2.7-3.8/3.0-4.0 cm LAIDs Index: 2.05 1.5-2.3 cm/m2 LV Mass: 121.60 67-162/88-224 g LV Mass Index: 83.29 43-95/49-115 g/m2 LVOT Diam: 1.80 3.0+(-)1.3 cm 2D Systolic Function EF 4C: 73.50 >55% EF 2C: 82.60 >55% EF BiP: 78.00 >55% Mitral Valve MV Pk E: 0.66 MV PK A: 0.66 MV Decel Time: 256.00 E/A: 1.00 E'Lateral: 6.64 E'Medial: 6.42 E/E' Med: 10.20 E/E' Lat: 9.90 PHT: 75.00 MVA PHT: 2.93 Decel Piute: 2.56 Aortic Valve AoV Pk Dawit: 1.19 AoV Pk Grad: 6.00 YOLANDA: 2.32 LVOT LVOT Pk Dawit: 1.07 LVOT Mn Dawit: 0.72 LVOT VTI: 0.25 LVOT Pk Grad: 5.00 LVOT Mn Grad: 2.00 LVOT Diam: 1.80 LVOT Area: 2.54 Diastolic Function MV Pk E: 0.66 MV Pk A: 0.66 E/A: 1.00 E'Medial: 6.42 E/E' Med: 10.20 E' Laterial: 6.64 E/E' Lat: 9.90 Right Ventricle TAPSE (mm): 22.80 Tricuspid Valve TR Pk Dawit: 2.54 TR Pk Grad: 26.00 RA Press: 3.00 RVSP: 29.00 Great Vessels Aorta Sinus of Valsalva: 2.70 2.0-3.5 cm Ao Asc: 2.50 2.1-3.4 cm Pulmonary Veins Pulm Vein S/D 1.90 Pulmonary Valve PV Pk Dawit: 0.92 Peak PV Grad: 3.00 Updated in Other Vendor System with Status of Final Alf Harmon MD electronically signed on 01/05/2025 3:36:32 PM with status of Final
--- OUTSIDE RECORDS SUMMARY | 2025-01-05 15:43 | XMS_ITS | Clinical Summary ---
Author Organization [facility] Address [address] [place] [address] Care Team Providers Care Vice President Of Instruction Name Role Phone Jocy Covarrubias MD Primary Care Provider +1- [phone] Allergies No known active allergies Medications Cholecalciferol [...] MEDICARE PART A & B Care Teams Vice President Of Instruction Relationship Specialty Start Date End Date Jocy Covarrubias MD [address] [place] [address] PCP - General Internal Medicine 12/23/18
--- OUTSIDE RECORDS SUMMARY | 2025-01-05 15:43 | XMS_ITS | Clinical Summary ---
Author Organization [facility] Address [address] [place] [address] Care Team Providers Care Global Marketing Intern Name Role Phone Unavailable Primary Care Provider [...]
--- OUTSIDE RECORDS SUMMARY | 2025-01-05 15:43 | XMS_ITS ---
[facility] Name [facility] Unknown History of Medication Use Medication Directions Dispensed Refills Start Date End Date Stat us hyoscyamine (LEVSIN) 0.125 MG tablet Take 1 tablet (0.125 mg total) by mouth every 4 (four) hours as needed for cramping. 12/18/2022 active PANTOprazole (PROTONIX) 40 MG EC tablet Take 1 tablet (40 mg total) by mouth daily. 12/18/2022 active atenolol (TENORMIN) 50 MG tablet Take 50 mg by mouth daily. 12/25/2021 active amLODIPine (NORVASC) 5 MG tablet Take 5 mg by mouth. 08/12/2021 active Cholecalciferol (VITAMIN D3 PO) Take 25 mcg by mouth. 01/10/2021 active hydrochlorothiazide (HYDRODIURIL) 25 MG tablet Take 25 mg by mouth daily. active Problems Problem Status Onset Date Problem Type Date of Resoluti on Source Diverticulitis active 2022-01-02 ProblemAct [facility] Hypertension active 2022-01-02 ProblemAct [facility] Periumbilical pain active 2022-01-02 ProblemAct [facility] Abdominal pain, generalized active 2022-12-18 ProblemAct [facility] Diverticulosis active 2022-12-18 ProblemAct [facility] Constipation active 2022-12-20 ProblemAct [facility] Epigastric pain active 2022-12-18 ProblemAct [facility] Encounters Encounter Type Encounter Reason Primary Diagnosis Location Date Ambulatory Follow-up Follow-up Jiff 05/24/2023 Ambulatory Diverticulosis of intestine, part unspecified, without perforation or abscess without bleeding Diverticulosis of intestine, part unspecified, without perforation or abscess without bleeding [facility] 12/18/2022 Ambulatory Periumbilical pain [facility] 01/02/2022 Care Team Organization Name Specialty Phone Email Start Date End Da [facility] 11/18/202101/02
--- OUTSIDE RECORDS SUMMARY | 2025-01-05 15:43 | XMS_ITS | Clinical Summary ---
Author Organization [facility] Address [address] [place] [address] Phone Care Team Providers Care Brick Loader Name Role Phone Jocy Covarrubias MD Primary Care Provider +1- [phone] Allergies No known active allergies Medications amoxicillin-cl [...] EDT - 12/24/2024 11:32 PM EDT Emergency [facility] Emergency [address] [place] [address] Quentin Dooley MD Landry, Jonathan P, MD Diverticulitis large intestine w/o perforation or abscess w/o bleeding (Primary Dx) Discharge Disposition: Home or Self Care 12/18/2024 6:55 PM EDT - 12/18/2024 9:48 PM EDT Emergency [facility] Emergency [address] [place] [address] Ruchi Vazquez MD Binocular vision [...] LAB MICROBIOLOGY METHOD 12/30/2024 5:01 AM EDT [facility] Blood Venous blood specimen / Unknown Venipuncture / Unknown 12/24/2024 10:50 PM EDT 12/24/2024 11:16 PM EDT us Agustín Carlos MD LAB MICROBIOLOGY - GENERAL ORDERABLES Final Result [facility] [address] [place] [address], * CT Abdomen Pelvis w Contrast (12/24/2024 [...] K/mcL LAB HEMETOLOGY METHOD 12/24/2024 7:57 PM [facility] RBC 3.80 3.80 - 4.80 M/mcL LAB HEMETOLOGY METHOD 12/24/2024 7:57 PM [facility] Hemoglobin 11.2(L) 11.5 - 16.0 g/dL LAB HEMETOLOGY METHOD 12/24/2024 7:57 PM [facility] Hematocrit 33.5(L) 35.0 - 47.0 % LAB HEMETOLOGY METHOD 12/24/2024 7:57 PM [facility] MCV 87.7 79.0 - 98.0 FL LAB HEMETOLOGY METHOD 12/24/2024 7:57 PM [facility] MCH 29.3 27.0 - 32.0 pcg LAB HEMETOLOGY METHOD 12/24/2024 7:57 PM EDT [facility] MCHC 33.4 32.0 - 37.0 g/dL LAB HEMETOLOGY METHOD 12/24/2024 7:57 PM EDT [facility] RDW 14.9 11.0 - 15.0 % LAB HEMETOLOGY METHOD 12/24/2024 7:57 PM EDT [facility] Platelets 315 130 - 400 K/mcL LAB HEMETOLOGY METHOD 12/24/2024 7:57 PM EDT [facility] MPV 10.8 7.0 - 11.0 FL LAB HEMETOLOGY METHOD 12/24[facility]2024 7[facility] NRBC 0.0 <1.0 % LAB HEMETOLOGY METHOD 12/24/2024 7:57 PM EDT [facility] NRBC Absolute 0.00 <0.10 K/mcL LAB HEMETOLOGY METHOD 12/24[facility]2024 7:[facility] Neutrophils Relative 76.7 % LAB HEMETOLOGY METHOD 12/24/2024 7:57 PM [facility] Lymphocytes Relative 11.5 % LAB HEMETOLOGY METHOD 12/24/2024 7:57 PM [facility] Monocytes Relative 10.9 % LAB HEMETOLOGY METHOD 12/24/2024 7:57 PM T [facility] Eosinophils Relative 0.3 % LAB HEMETOLOGY METHOD 12/24/2024 7:57 PM EDT [facility] Basophils Relative 0.2 % LAB HEMETOLOGY METHOD 12/24/2024 7:57 PM [facility] Immature Granulocytes Relative 0.4 % LAB HEMETOLOGY METHOD 12/24/2024 7:57 PM EDT [facility] Neutrophils Absolute 8.14(H) 1.50 - 7.00 K/mcL LAB HEMETOLOGY METHOD 12/24/2024 7:57 PM EDT [facility] Lymphocytes Absolute 1.22 1.00 - 5.00 K/mcL LAB HEMETOLOGY METHOD 12/24/2024 7:57 PM EDT [facility] Monocytes Absolute 1.16(H) 0.20 - 1.00 K/mcL LAB HEMETOLOGY METHOD 12/24/2024 7:57 PM EDT [facility] Eosinophils Absolute 0.03 0.00 - 0.50 K/[facility] LAB HEMETOLOGY METHOD 12/24/2024 7:57 PM EDT [facility] Basophils Absolute 0.02 0.00 - 0.20 K/[facility] LAB HEMETOLOGY METHOD 12/24/2024 7:57 PM EDT [facility] Immature Granulocytes Absolute 0.04(H) 0.00 - 0.03 K/[facility] LAB HEMETOLOGY METHOD 12/24/2024 7:57 PM EDT [facility] Blood Venous blood specimen / Unknown Venipuncture / Unknown 12/24/2024 7:33 PM EDT 12/24/2024 7:50 PM EDT us Agustín Carlos MD LAB BLOOD ORDERABLES Final Result [facility] [address] [place] [address], * (ABNORMAL) Magnesium (12/24/2024 7:33 PM EDT) Magnesium 1.8(L) 1.9 - 2.6 mg/dL LAB CHEMISTRY METHOD 12/24/2024 8:26 PM EDT [facility] Comment:Hemolysis present Blood Venous blood specimen / Unknown Venipuncture / Unknown 12/24/2024 7:33 PM EDT 12/24/2024 7:50 PM EDT Quentin Dooley MD LAB BLOOD ORDERABLES Final Resul t Performing Organization Address [facility]/ZIP Co de Phone Number [facility] [address] [place] [address], [place] [phone] * Lipase (12/24/2024 7:33 PM EDT) Pathologist [facility] Lipase 20 13 - 75 unit/L LAB CHEMISTRY METHOD 12/24/2024 8:26 PM EDT [facility] Blood Venous blood specimen / Unknown Venipuncture / Unknown 12/24/2024 7:33 PM EDT 12/24/2024 7:50 PM EDT Agustín Carlos MD LAB BLOOD ORDERABLES Final Result Performing Organization Address [facility] Co de Phone Number [facility] [address] [place] [address], [place] [phone] * Lactate (12/24/2024 7:33 PM EDT) [facility] Lactate 1.1 0.4 - 2.0 mmol/L LAB CHEMISTRY METHOD 12/24/2024 8:18 PM EDT [facility] Blood Venous blood specimen / Unknown Venipuncture / Unknown 12/24/2024 7:33 PM EDT 12/24/2024 7:50 PM EDT us Quentin Dooley MD LAB BLOOD ORDERABLES Final Resul t Performing Organization Address [facility]/ZIP Co de Phone Number [facility] [address] [place] [address], [place] [phone] * (ABNORMAL) Comprehensive metabolic panel (12/24/2024 7:33 PM EDT) Pathologist [facility] Sodium 135 133 - 145 mmol/L LAB CHEMISTRY METHOD 12/24/2024 8:26 PM EDT [facility] Potassium 4.7 3.5 - 5.5 mmol/L LAB CHEMISTRY METHOD 12/24/2024 8:26 PM [facility] Comment:Hemolysis present Chloride 100 96 - 110 mmol/L LAB CHEMISTRY METHOD 12/24/2024 8:26 PM [facility] CO2 30 21 - 32 mmol/L LAB CHEMISTRY METHOD 12/24/2024 8:26 PM [facility] Anion Gap 5 3 - 11 LAB CHEMISTRY METHOD 12/24/2024 8:26 PM [facility] Glucose 93 70 - 100 mg/dL LAB CHEMISTRY METHOD 12/24/2024 8:26 PM [facility] BUN 11 5 - 25 mg/dL LAB CHEMISTRY METHOD 12/24/2024 8:26 PM [facility] Creatinine 0.96 0.50 - 1.10 mg/dL LAB CHEMISTRY METHOD 12/24/2024 8:26 PM [facility] eGFR 57(L) >=60 mL/min/1. 73m2 LAB CHEMISTRY METHOD 12/24/2024 8:26 PM [facility] Comment:Calculation based on the Chronic Kidney Disease Epidemiology Collaboration (CKD-EPI) equation refit without adjustment for race. BUN/Creatinine Ratio 11.5 LAB CHEMISTRY METHOD 12/24/2024 8:26 PM [facility] Calcium 9.1 8.5 - 10.5 mg/dL LAB CHEMISTRY METHOD 12/24/2024 8:26 PM [facility] AST (SGOT) 44(H) 10 - 42 unit/L LAB CHEMISTRY METHOD 12/24/2024 8:26 PM [facility] Comment:Hemolysis present ALT (SGPT) 19 10 - 60 unit/L LAB CHEMISTRY METHOD 12/24/2024 8:26 PM [facility] Alkaline Phosphatase 55 42 - 121 unit/L LAB CHEMISTRY METHOD 12/24/2024 8:26 PM EDT [facility] Total Protein 7.0 6.0 - 8.0 g/dL LAB CHEMISTRY METHOD 12/24/2024 8:26 PM EDT [facility] Albumin 3.1(L) 3.2 - 5.0 g/dL LAB CHEMISTRY METHOD 12/24/2024 8:26 PM EDT [facility] Total Bilirubin 0.8 0.0 - 1.4 mg/dL LAB CHEMISTRY METHOD 12/24/2024 8:26 PM EDT [facility] Blood Venous blood specimen / Unknown Venipuncture / Unknown 12/24/2024 7:33 PM EDT 12/24/2024 7:50 PM EDT Agustín Carlos MD LAB BLOOD ORDERABLES Final Result [facility] [address] [place] [address], [place] [phone] * 12-Lead ECG (12/24/2024 7:16 PM EDT) Ventricular Rate ECG 81 BPM GEMUSE Atrial Rate 81 BPM GEMUSE P-R Interval 144 ms GEMUSE QRS Duration 60 ms GEMUSE Q-T Interval 334 ms GEMUSE QTc 387 ms GEMUSE P Wave Thelma 54 degrees GEMUSE R Thelma 10 degrees GEMUSE T Thelma 28 degrees GEMUSE ECG Interpretation Normal sinus rhythm Normal ECG When compared with ECG of 03-SEP-2014 20:42, No significant change was found Confirmed by Sotero KAPOOR YUFENG ([id number]) on 12/24/2024 9:35:54 PM GEMUSE 12/24/2024 7:16 PM EDT 12/24/2024 9:35 PM EDT us Quentin Dooley MD ECG ORDERABLES Final Result GEMUSE * (ABNORMAL) Urinalysis with reflex microscopic and culture (12/24/2024 6:07 PM EDT) Specific [place] Urine 1.014 1.003 - 1.030 LAB URINALYSIS - AUTOMATED METHOD 12/24/2024 6:39 PM [facility] pH, Urine 7.5 5.0 - 8.0 pH LAB URINALYSIS - AUTOMATED METHOD 12/24/2024 6:39 PM [facility] Leukocytes, Urine Negative Negative LAB URINALYSIS - AUTOMATED METHOD 12/24/2024 6:39 PM [facility] Nitrite, Urine Negative Negative LAB URINALYSIS - AUTOMATED METHOD 12/24/2024 6:39 PM [facility] Protein, Urine Negative <=Trace mg/dL LAB URINALYSIS - AUTOMATED METHOD 12/24/2024 6:39 PM [facility] Glucose, Urine Negative Negative mg/dL LAB URINALYSIS - AUTOMATED METHOD 12/24/2024 6:39 PM [facility] Ketones, Urine Negative Negative mg/dL LAB URINALYSIS - AUTOMATED METHOD 12/24/2024 6:39 PM [facility] Urobilinogen , Urine 0.2 0.2 - 1.0 mg/dL LAB URINALYSIS - AUTOMATED METHOD 12/24/2024 6:39 PM [facility] Bilirubin, Urine Negative Negative LAB URINALYSIS - AUTOMATED METHOD 12/24/2024 6:39 PM [facility] Blood, Urine Moderate(A) Negative LAB URINALYSIS - AUTOMATED METHOD 12/24/2024 6:39 PM [facility] RBC, Urine 34.2(H) 0 - 4 /HPF LAB URINALYSIS - AUTOMATED METHOD 12/24/2024 6:39 PM [facility] WBC, Urine 1.7 0 - 4 /HPF LAB URINALYSIS - AUTOMATED METHOD 12/24/2024 6:39 PM [facility] Squamous Epithelial, Urine 58 0 - 60 /LPF LAB URINALYSIS - AUTOMATED METHOD 12/24/2024 6:39 PM EDT [facility] Bacteria, Urine Negative Negative /HPF LAB URINALYSIS - AUTOMATED METHOD 12/24/2024 6:39 PM EDT [facility] Hyaline Casts, Urine 0.0 0 - 3 /LPF LAB URINALYSIS - AUTOMATED METHOD 12/24/2024 6:39 PM EDT [facility] Urine Urine specimen obtained by clean catch procedure / Unknown Non-blood Collection / Unknown 12/24/2024 6:07 PM EDT 12/24/2024 6:12 PM EDT Agustín Carlos MD LAB URINE ORDERABLES Final Result Performing Organization Address City/[facility]/ZIP Co de Phone Number [facility] [address] [place] [address], [place] [phone] * Reece urine culture tube (12/24/2024 6:07 PM EDT) Extra Tube Hold for add-ons. 12/24/2024 8:01 PM EDT [facility] Comment:Auto resulted. Urine Urine specimen obtained by clean catch procedure / Unknown Non-blood Collection / Unknown 12/24/2024 6:07 PM EDT 12/24/2024 6:12 PM EDT Agustín Carlos MD LAB URINE ORDERABLES Final Result [facility] [address] [place] [address], [place] [phone] * CT Fossa/Sella/IAC/Orbit w Contrast (12/18/2024 8:43 [...] mmol/L LAB CHEMISTRY METHOD 12/18/2024 7:51 PM [facility] Potassium 4.4 3.5 - 5.5 mmol/L LAB CHEMISTRY METHOD 12/18/2024 7:51 PM [facility] Chloride 102 96 - 110 mmol/L LAB CHEMISTRY METHOD 12/18/2024 7:51 PM [facility] CO2 30 21 - 32 mmol/L LAB CHEMISTRY METHOD 12/18/2024 7:51 PM [facility] Anion Gap 5 3 - 11 LAB CHEMISTRY METHOD 12/18/2024 7:51 PM [facility] Glucose 101(H) 70 - 100 mg/dL LAB CHEMISTRY METHOD 12/18/2024 7:51 PM [facility] BUN 13 5 - 25 mg/dL LAB CHEMISTRY METHOD 12/18/2024 7:51 PM [facility] Creatinine 0.89 0.50 - 1.10 mg/dL LAB CHEMISTRY METHOD 12/18/2024 7:51 PM EDT [facility] eGFR 63 >=60 mL/min/1. 73m2 LAB CHEMISTRY METHOD 12/18/2024 7:51 PM EDT [facility] Comment:Calculation based on the Chronic Kidney Disease Epidemiology Collaboration (CKD-EPI) equation refit without adjustment for race. BUN/Creatinine Ratio 14.6 LAB CHEMISTRY METHOD 12/18/2024 7:51 PM EDT [facility] Calcium 9.9 8.5 - 10.5 mg/dL LAB CHEMISTRY METHOD 12/18/2024 7:51 PM EDT [facility] Blood Venous blood specimen / Unknown Venipuncture / Unknown 12/18/2024 7:04 PM EDT 12/18/2024 7:12 PM EDT us Ruchi Vazquez MD LAB BLOOD ORDERABLES Final Resul t [facility] [address] [place] [address], from Last 3 Months Insurance MEDICARE Care Teams Brick Loader Relationship Specialty Start Date End Date Jocy Covarrubias MD [id number] [place] [address] PCP - General Internal Medicine 12/18/24
== END ==
LOC: HO.CARD 13:38
PROVIDERS: PCP Internal Medicine; Visit Provider Internal Medicine
DX: R06.02 Shortness of breath (principal)
CPT/HCPCS: 93306

== ENCOUNTER → 2025-01-05 13:41 | Outpatient (BNV) | payer MEDICARE, SELFPAY | PROVIDERS: PCP Internal Medicine; Visit Provider Internal Medicine Cardiovascular Disease | DX: I51.89 Other ill-defined heart diseases (principal) | CPT/HCPCS: 93306 ==

== ENCOUNTER → 2025-01-10 08:39 | Outpatient (REF) | payer MEDICARE, SELFPAY ==
--- NOTE | ~2025-01-10 | NM_ITS ---
EXERCISE MYOCARDIAL PERFUSION STUDY INDICATION: Shortness of breath to evaluate for myocardial ischemia TECHNIQUE: The patient was brought in for an exercise perfusion study on 01/10/2025. Patient performed exercise as per Gianluca protocol and was injected 25 mCi of sestamibi once target heart rate was achieved. Images were obtained using the SPECT gamma camera interlaced with the gating device. Images were obtained in supine position. Resting perfusion study was performed on 01/11/2025. Patient was administered 25 mCi of sestamibi intravenously at rest. Images were then obtained in supine position. Images were processed with the software and compared side to side in short axis, horizontal long axis and vertical long axis views. Images obtained without without CT attenuation. Total DLP 81 mGy-cm. FINDINGS: Raw images were reviewed The stress perfusion study showed nonattenuated images show normal uptake of radiotracer in all segments of the LV myocardium. Attenuated corrected images show mildly reduced uptake in the distal anterior and septal wall of the LV myocardium.. The gated study shows normal LV systolic function with calculated LVEF of 71%. LV cavity is normal in size. The gated study shows normal systolic wall thickening and contraction of segments. Resting study shows no change in perfusion pattern compared to stress perfusion study. Gating at rest reveals normal systolic wall motion with ejection fraction at greater than 60%. The findings are consistent with normal myocardial perfusion. NM/NM cardiolite stress test IMPRESSION: 1. Myocardial perfusion imaging study shows normal myocardial perfusion. 2. Gated LVEF is 71%. 3. Transient ischemic dilatation not present. EKG revealed positive for ischemia. Electronically signed by: Alf Harmon MD 01/11/2025 03:52 PM [facility] [place]
--- NOTE | 2025-01-10 08:42 | CA_ITS ---
Acquisition Time: 2025-01-10 09:11:55 Total Exercise Time: 00:06:02 Test Indications: CP,Dyspnea,Palpitations Medications: AMLODIPINE ATENOLOL Protocol: JAYA Max HR: 123 BPM 92% of Pred: 133 BPM Max BP: 124/68 mmHG Max Work Load: 4.4 METS Exercise stress test with exercise 5 mins of Jaya Protocol at reduced speed of 1.5mph and reduced incline at 9%, achieving 86% MPHR, with reports of fatigue and SOB, no chest pain, with isolated PVCs, with normotensive response to exercise. EKGs difficult to interpret due to artifacts. In recovery, with T wave inverson inferiorly and in leads V3- V6, suggestive of ischemia. In recovery, pt's breathing improved and pt feeling back to baseline. ST sgement improved. Nuclear images pending. Test reviewed with Dr. Harmon. Referred By: Jocy Covarrubias Electronically Signed By: Kaleb Strickland
--- OUTSIDE RECORDS SUMMARY | 2025-01-10 09:00 | XMS_ITS | Patient Health Record ---
Author Organization [facility] Address [address] [place] [address] Care Team Providers Care Garage Supervisor Name Role Phone Johnnie Puentes MD Primary Care Provider Terrie Armstrong Unavailable [phone] Reason For Referral No Information Medications Medication [...] X ray : Foot, left 3V 08/01/2012 44099- Debride <25 sq cm 08/01/2012 78206- Debride <25 sq cm 11/07/2012 46795- Debride <25 sq cm 03/23/2013 Insurance Providers Payer Name Payer Address Payer Phone Subscriber Number Group Number Insured Name Patient Relationship to Insured Coverage Start Date Coverage End Date Medicare [employer] [address] [place] [address] [id number] Enma Roman Self - patient is the insured 3 Medical (General) History Medical History History ICD Code angina Arthritis diverticulosis hypertension reflux Surgical History Surgery Date(Month/Year) hysterectomy 1996
--- OUTSIDE RECORDS SUMMARY | 2025-01-10 09:00 | XMS_ITS | Clinical Summary ---
Author Organization [facility] Address [address] [place] [address] Care Team Providers Care Measurement Technician Name Role Phone Unavailable Primary Care Provider [...]
--- OUTSIDE RECORDS SUMMARY | 2025-01-10 09:00 | XMS_ITS | Clinical Summary ---
Author Organization [facility] Address [address] [place] [address] Care Team Providers Care Ophthalmic Medical Technician Name Role Phone Jocy Covarrubias MD Primary Care Provider [phone]- [phone] Allergies No known active allergies Medications Cholecalciferol [...] MEDICARE PART A & B Care Teams Ophthalmic Medical Technician Relationship Specialty Start Date End Date Jocy Covarrubias MD [address] [place] [address] PCP - General Internal Medicine 12/23/18
--- OUTSIDE RECORDS SUMMARY | 2025-01-10 09:00 | XMS_ITS | Clinical Summary ---
Author Organization [facility] Address [address] [place] [address] Phone Care Team Providers Care Cyber Policy And Strategy Planner Name Role Phone Jocy Covarrubias MD Primary Care Provider [phone]- [phone] Allergies No known active allergies Medications erythromycin 5 mg/gram (0.5 %) ophthalmic ointment Place a 1/2 inch ribbon of ointment into the lower eyelid. 3.5 g 5 025 amoxicillin-cl avulanate (AUGMENTIN) 400-57 mg/5 mL suspension Take 10 mL by mouth every 12 (twelve) hours for 14 days. 280 mL 5 025 Discontinued amoxicillin-cl avulanate (AUGMENTIN) 400-57 mg/5 mL suspension Take 10 mL by mouth every 12 (twelve) hours for 14 days. 280 mL 5 025 Encounters Date Type Department Care Team Description 12/24/2024 6:39 PM EDT - 12/24/2024 11:32 PM EDT Emergency [facility] Emergency [address] [place] [address] Quentin Dooley MD Landry, Jonathan P, MD Diverticulitis large intestine w/o perforation or abscess w/o bleeding (Primary Dx) Discharge Disposition: Home or Self Care 12/18/2024 6:55 PM EDT - 12/18/2024 9:48 PM EDT Emergency [facility] Emergency [address] [place] [address] Ruchi Vazquez MD Binocular vision [...] LAB MICROBIOLOGY METHOD 12/30/2024 5:01 AM [facility] [place] [facility] Blood Venous blood specimen / Unknown Venipuncture / Unknown 12/24/2024 10:50 PM EDT 12/24/2024 11:16 PM EDT Agustín Carlos MD LAB MICROBIOLOGY - GENERAL ORDERABLES Final Result [facility] ([facility]) HOSPITAL LAB [address] [place] [address], * CT Abdomen Pelvis w Contrast (12/24/2024 [...] MD on 12/24/2024 22:14:37 Quentin Dooley MD IMG CT PROCEDURES Final Result * (ABNORMAL) CBC auto differential (12/24/2024 7:33 PM EDT) Only the most recent of2 resultswithin the time period is included. WBC 10.6 4.8 - 10.8 K/mcL LAB HEMETOLOGY METHOD 12/24/2024 7:[address] [facility] RBC 3.80 3.80 - 4.80 M/mcL LAB HEMETOLOGY [facility] Hemoglobin 11.2(L) 11.5 - 16.0 g/dL LAB HEMETOLOGY METHOD 12/24/2024 7:[address] [facility] Hematocrit 33.5(L) 35.0 - 47.0 % LAB HEMETOLOGY METHOD 12/24/2024 7:[address] [facility] MCV 87.7 79.0 - 98.0 FL LAB HEMETOLOGY METHOD 12/24/2024 7:[address] [facility] MCH 29.3 27.0 - 32.0 pcg LAB HEMETOLOGY METHOD 12/24/2024 7:57 PM EDT [facility] LAB MCHC 33.4 32.0 - 37.0 g/dL LAB HEMETOLOGY METHOD 12/24[facility]24 7[facility] RDW 14.9 11.0 - 15.0 % LAB HEMETOLOGY METHOD 12/24/2024 7:57 PM EDT [facility] LAB Platelets 315 130 - 400 K/mcL LAB HEMETOLOGY METHOD 12/24/2024 7:57 PM EDT [facility] MPV 10.8 7.0 - 11.0 FL LAB HEMETOLOGY METHOD 12/24[facility]2024 7[facility] NRBC 0.0 <1.0 % LAB HEMETOLOGY METHOD 12/24/2024 7:[facility] NRBC Absolute 0.00 <0.10 K/mcL LAB HEMETOLOGY METHOD 12/24/2024 7:[address] [facility] Neutrophils Relative 76.7 % LAB HEMETOLOGY METHOD 12/24/2024 7:[address] [facility] Lymphocytes Relative 11.5 % LAB HEMETOLOGY METHOD 12/24/2024 7:[address] [facility] Monocytes Relative 10.9 % LAB HEMETOLOGY METHOD 12/24/2024 7:[address] [facility] Eosinophils Relative 0.3 % LAB HEMETOLOGY METHOD 12/24/2024 7:57 PM EDT [facility] Basophils Relative 0.2 % LAB HEMETOLOGY METHOD 12/24/2024 7:[address] [facility] Immature Granulocytes Relative 0.4 % LAB HEMETOLOGY METHOD 12/24/2024 7:[address] [facility] Neutrophils Absolute 8.14(H) 1.50 - 7.00 K/mcL LAB HEMETOLOGY METHOD 12/24/2024 7:57 PM EDT [facility] Lymphocytes Absolute 1.22 1.00 - 5.00 K/mcL LAB HEMETOLOGY METHOD 12/24/2024 7:57 PM EDT [facility] Monocytes Absolute 1.16(H) 0.20 - 1.00 K/mcL LAB HEMETOLOGY METHOD 12/24/2024 7:57 PM EDT [facility] LAB Eosinophils Absolute 0.03 0.00 - 0.50 K/[facility] LAB HEMETOLOGY METHOD 12/24/2024 7:57 PM EDT [facility] LAB Basophils Absolute 0.02 0.00 - 0.20 K/[facility] LAB HEMETOLOGY METHOD 12/24/2024 7:57 PM EDT [facility] Immature Granulocytes Absolute 0.04(H) 0.00 - 0.03 K/[facility] LAB HEMETOLOGY METHOD 12/24/2024 7:57 PM EDT [facility] LAB Blood Venous blood specimen / Unknown Venipuncture / Unknown 12/24/2024 7:33 PM EDT 12/24/2024 7:50 PM EDT Agustín Carlos MD LAB BLOOD ORDERABLES Final Result [facility] [address] [place] [address], * (ABNORMAL) Magnesium (12/24/2024 7:33 PM EDT) Magnesium 1.8(L) 1.9 - 2.6 mg/dL LAB CHEMISTRY METHOD 12/24/2024 8:26 PM EDT [facility] LAB Comment:Hemolysis present Blood Venous blood specimen / Unknown Venipuncture / Unknown 12/24/2024 7:33 PM EDT 12/24/2024 7:50 PM EDT us Quentin Dooley MD LAB BLOOD ORDERABLES Final Resul t Performing Organization Address [facility] Co de Phone Number [facility] [address] [place] [address], [place] [phone] * Lipase (12/24/2024 7:33 PM EDT) Pathologist [facility] Lipase 20 13 - 75 unit/L LAB CHEMISTRY METHOD 12/24/2024 8:26 PM EDT [facility] Blood Venous blood specimen / Unknown Venipuncture / Unknown 12/24/2024 7:33 PM EDT 12/24/2024 7:50 PM EDT Agustín Carlos MD LAB BLOOD ORDERABLES Final Result Performing Organization Address [facility] Co de Phone Number [facility] [address] [place] [address], [place] [phone] * Lactate (12/24/2024 7:33 PM EDT) [facility] Lactate 1.1 0.4 - 2.0 mmol/L LAB CHEMISTRY METHOD 12/24/2024 8:18 PM EDT [facility] Blood Venous blood specimen / Unknown Venipuncture / Unknown 12/24/2024 7:33 PM EDT 12/24/2024 7:50 PM EDT us Quentin Dooley MD LAB BLOOD ORDERABLES Final Resul t Performing Organization Address [facility]/ZIP Co de Phone Number [facility] [address] [place] [address], [place] [phone] * (ABNORMAL) Comprehensive metabolic panel (12/24/2024 7:33 PM EDT) Pathologist [facility] Sodium 135 133 - 145 mmol/L LAB CHEMISTRY METHOD 12/24/2024 8:26 PM EDT [facility] Potassium 4.7 3.5 - 5.5 mmol/L LAB CHEMISTRY METHOD 12/24/2024 8:[address] [facility] Comment:Hemolysis present Chloride 100 96 - 110 mmol/L LAB CHEMISTRY METHOD 12/24/2024 8:[address] [facility] CO2 30 21 - 32 mmol/L LAB CHEMISTRY METHOD 12/24/2024 8:[address] [facility] Anion Gap 5 3 - 11 LAB CHEMISTRY METHOD 12/24/2024 8:[address] [facility] Glucose 93 70 - 100 mg/dL LAB CHEMISTRY METHOD 12/24/2024 8:[address] [facility] BUN 11 5 - 25 mg/dL LAB CHEMISTRY METHOD 12/24/2024 8:[address] [facility] Creatinine 0.96 0.50 - 1.10 mg/dL LAB CHEMISTRY METHOD 12/24/2024 8:[address] [facility] eGFR 57(L) >=60 mL/min/1. 73m2 LAB CHEMISTRY METHOD 12/24/2024 8:[address] [facility] Comment:Calculation based on the Chronic Kidney Disease Epidemiology Collaboration (CKD-EPI) equation refit without adjustment for race. BUN/Creatinine Ratio 11.5 LAB CHEMISTRY METHOD 12/24/2024 8:[address] [facility] Calcium 9.1 8.5 - 10.5 mg/dL LAB CHEMISTRY METHOD 12/24/2024 8:[address] [facility] AST (SGOT) 44(H) 10 - 42 unit/L LAB CHEMISTRY METHOD 12/24/2024 8:[address] [facility] Comment:Hemolysis present ALT (SGPT) 19 10 - 60 unit/L LAB CHEMISTRY METHOD 12/24/2024 8:[address] [facility] Alkaline Phosphatase 55 42 - 121 unit/L LAB CHEMISTRY METHOD 12/24/2024 8:26 PM EDT [facility] Total Protein 7.0 6.0 - 8.0 g/dL LAB CHEMISTRY METHOD 12/24/2024 8:26 PM EDT [facility] Albumin 3.1(L) 3.2 - 5.0 g/dL LAB CHEMISTRY METHOD 12/24/2024 8:26 PM EDT [facility] Total Bilirubin 0.8 0.0 - 1.4 mg/dL LAB CHEMISTRY METHOD 12/24/2024 8:26 PM EDT [facility] Blood Venous blood specimen / Unknown Venipuncture / Unknown 12/24/2024 7:33 PM EDT 12/24/2024 7:50 PM EDT Agustín Carlos MD LAB BLOOD ORDERABLES Final Result [facility] [address] [place] [address], [place] [phone] * 12-Lead ECG (12/24/2024 7:16 PM EDT) Ventricular Rate ECG 81 BPM GEMUSE Atrial Rate 81 BPM GEMUSE P-R Interval 144 ms GEMUSE QRS Duration 60 ms GEMUSE Q-T Interval 334 ms GEMUSE QTc 387 ms GEMUSE P Wave [place] 54 degrees GEMUSE R [place] 10 degrees GEMUSE T [place] 28 degrees GEMUSE ECG Interpretation Normal sinus rhythm Normal ECG When compared with ECG of 03-SEP-2014 20:42, No significant change was found Confirmed by Sotero KAPOOR YUFENG ([id number]) on 12/24/2024 9:35:54 PM GEMUSE 12/24/2024 7:16 PM EDT 12/24/2024 9:35 PM EDT Quentin Dooley MD ECG ORDERABLES Final Result GEMUSE * (ABNORMAL) Urinalysis with reflex microscopic and culture (12/24/2024 6:07 PM EDT) Specific [place] Urine 1.014 1.003 - 1.030 LAB URINALYSIS - AUTOMATED METHOD 12/24/2024 6:[address] [facility] pH, Urine 7.5 5.0 - 8.0 pH LAB URINALYSIS - AUTOMATED METHOD 12/24/2024 6:[address] [facility] Leukocytes, Urine Negative Negative LAB URINALYSIS - AUTOMATED METHOD 12/24/2024 6:[address] [facility] Nitrite, Urine Negative Negative LAB URINALYSIS - AUTOMATED METHOD 12/24/2024 6:[address] [facility] Protein, Urine Negative <=Trace mg/dL LAB URINALYSIS - AUTOMATED METHOD 12/24/2024 6:[address] [facility] Glucose, Urine Negative Negative mg/dL LAB URINALYSIS - AUTOMATED METHOD 12/24/2024 6:[address] [facility] Ketones, Urine Negative Negative mg/dL LAB URINALYSIS - AUTOMATED METHOD 12/24/2024 6:[address] [facility] Urobilinogen , Urine 0.2 0.2 - 1.0 mg/dL LAB URINALYSIS - AUTOMATED METHOD 12/24/2024 6:[address] [facility] Bilirubin, Urine Negative Negative LAB URINALYSIS - AUTOMATED METHOD 12/24/2024 6:[address] [facility] Blood, Urine Moderate(A) Negative LAB URINALYSIS - AUTOMATED METHOD 12/24/2024 6:[address] [facility] RBC, Urine 34.2(H) 0 - 4 /HPF LAB URINALYSIS - AUTOMATED METHOD 12/24/2024 6:[address] [facility] WBC, Urine 1.7 0 - 4 /HPF LAB URINALYSIS - AUTOMATED METHOD 12/24/2024 6:[address] [facility] Squamous Epithelial, Urine 58 0 - 60 /LPF LAB URINALYSIS - AUTOMATED METHOD 12/24/2024 6:39 PM EDT [facility] Bacteria, Urine Negative Negative /HPF LAB URINALYSIS - AUTOMATED METHOD 12/24/2024 6:39 PM EDT [facility] Hyaline Casts, Urine 0.0 0 - 3 /LPF LAB URINALYSIS - AUTOMATED METHOD 12/24/2024 6:39 PM EDT [facility] Urine Urine specimen obtained by clean catch procedure / Unknown Non-blood Collection / Unknown 12/24/2024 6:07 PM EDT 12/24/2024 6:12 PM EDT Agustín Carlos MD LAB URINE ORDERABLES Final Result Performing Organization Address City/[facility]/ZIP Co de Phone Number [facility] [address] [place] [address], [place] [phone] * Reece urine culture tube (12/24/2024 6:07 PM EDT) Extra Tube Hold for add-ons. 12/24/2024 8:01 PM EDT [facility] Comment:Auto resulted. Urine Urine specimen obtained by clean catch procedure / Unknown Non-blood Collection / Unknown 12/24/2024 6:07 PM EDT 12/24/2024 6:12 PM EDT Agustín Carlos MD LAB URINE ORDERABLES Final Result [facility] [address] [place] [address], [place] [phone] * CT Fossa/Sella/IAC/Orbit w Contrast (12/18/2024 8:43 [...] mmol/L LAB CHEMISTRY METHOD 12/18/2024 7:[address] [facility] Potassium 4.4 3.5 - 5.5 mmol/L LAB CHEMISTRY METHOD 12/18/2024 7:[address] [facility] Chloride 102 96 - 110 mmol/L LAB CHEMISTRY METHOD 12/18/2024 7:[address] [facility] CO2 30 21 - 32 mmol/L LAB CHEMISTRY METHOD 12/18/2024 7:[address] [facility] Anion Gap 5 3 - 11 LAB CHEMISTRY METHOD 12/18/2024 7:[address] [facility] Glucose 101(H) 70 - 100 mg/dL LAB CHEMISTRY METHOD 12/18/2024 7:[address] [facility] BUN 13 5 - 25 mg/dL LAB CHEMISTRY METHOD 12/18/2024 7:[address] [facility] Creatinine 0.89 0.50 - 1.10 mg/dL LAB CHEMISTRY METHOD 12/18/2024 7:51 PM EDT [facility] eGFR 63 >=60 mL/min/1. 73m2 LAB CHEMISTRY METHOD 12/18/2024 7:51 PM EDT [facility] Comment:Calculation based on the Chronic Kidney Disease Epidemiology Collaboration (CKD-EPI) equation refit without adjustment for race. BUN/Creatinine Ratio 14.6 LAB CHEMISTRY METHOD 12/18/2024 7:51 PM EDT [facility] Calcium 9.9 8.5 - 10.5 mg/dL LAB CHEMISTRY METHOD 12/18/2024 7:51 PM EDT [facility] Blood Venous blood specimen / Unknown Venipuncture / Unknown 12/18/2024 7:04 PM EDT 12/18/2024 7:12 PM EDT us Ruchi Vazquez MD LAB BLOOD ORDERABLES Final Resul t [facility] [address] [place] [address], from Last 3 Months Insurance MEDICARE Care Teams Cyber Policy And Strategy Planner Relationship Specialty Start Date End Date Jocy Covarrubias MD [address], [place] [address] PCP - General Internal Medicine 12/18/24
== END ==
LOC: HO.CARD 08:39
PROVIDERS: PCP Internal Medicine; Visit Provider Internal Medicine
DX: R06.02 Shortness of breath (principal); R07.9 Chest pain, unspecified
CPT/HCPCS: 78452; 93017; A9500; J0280; J2785

== ENCOUNTER → 2025-01-10 08:42 | Outpatient (BNV) | payer MEDICARE, SELFPAY | PROVIDERS: PCP Internal Medicine | DX: R06.02 Shortness of breath (principal) | CPT/HCPCS: 78452; 93016; 93018 ==